=== PATIENT | male | born 1955 | race Caucasian/White ===

== ENCOUNTER 2018-02-13 10:01 | Inpatient (IN) ==
[2018-02-22] MEDS ORDERED: LIDOCAINE 1% (10mg/ml) 2mL INJ PF SDV ID ONE (06:00)
[2018-02-22] MEDS ORDERED: METOCLOPRAMIDE 10mg/2ml INJECTION IVP ONE (06:00)
[2018-02-22] MEDS ORDERED: TRANEXAMIC ACID 1,000 MG in NS 100 ML IV ONE ×2 (06:00→07:00)
[2018-02-22] MEDS ORDERED: ACETAMINOPHEN 500 MG TABLET PO ONE (06:00)
[2018-02-22] MEDS ORDERED: ONDANSETRON 4 MG/2 ML INJECTION IVP ONE (06:00)
[2018-02-22] MEDS ORDERED: DEXAMETHASONE 4 MG/ML INJECTION IVP ONE (06:00)
[2018-02-22] MEDS ORDERED: FAMOTIDINE PB 20 MG/50 ML BAG IV ONE (06:00)
[2018-02-22] MEDS ORDERED: EPINEPHrine PF 0.25 MG, BUPIVACAINE 0.25% PF 30 ML in NS 30 ML OPSITE ONE (08:00)
[2018-02-22 08:39] VITALS: BMI 25.7
[2018-02-22] MEDS: NS 1,000 ML IV SCH ×7 (09:00→18:11)
[2018-02-22] MEDS: NOZIN NASAL SWAB NAS SCH ×5 (09:45→22:43)
--- NOTE | 2018-02-22 10:59 | Anesthesia Preoperative Report ---
Anesthesia Preoperative Record - Date and Time Date: 02/22/18 Preoperative Diagnosis: RT MCKENNA M16.11 Proposed Procedure: RIGHT ARTHROPLASTY TOTAL HIP ROBOT ASSIST NPO Since Date: 02/22/18 NPO Since Time: 00:00 Allergies/Adverse Reactions: Allergies Allergy/AdvReac Type Severity Reaction Status Date / Time LEON Inhibitors Allergy Unknown SWELLING Verified 02/22/18 08:53 Cashews Allergy Unknown THROAT Verified 02/22/18 08:53 SWELLS Peanuts Allergy Unknown THROAT Verified 02/22/18 08:53 SWELLS tramadol [From Ultram] Allergy Unknown facial Verified 02/22/18 08:53 swelling - Vital Signs Vital Signs: Temperature 98.5 F 02/22/18 08:25 Pulse Rate 57 L 02/22/18 09:08 Respiratory Rate 18 02/22/18 08:25 Blood Pressure 134/83 02/22/18 08:25 Pulse Oximetry 98 02/22/18 08:25 Height and Weight: Height 1.7 m Weight 74.5 kg Body Mass Index 25.7 - Medications Inpatient Medications: Current Medications Cefazolin Sodium (Kefzol 1 Gm Vial) 2 g IVP PREOP ONE Stop: 02/22/18 11:01 Sodium Chloride (Normal Saline) 1,000 mls @ 50 mls/hr IV .Q20H HAMLET Isopropyl Alcohol (Nozin Nasal Swab) 1 each CRIS Q1M HAMLET Stop: 02/22/18 12:33 Sodium Chloride (Iv Flush) 10 - 80 ml IV PRN PRN PRN Reason: [place] Home Medications: Home Medications Medication Instructions Recorded Confirmed Type Toprol XL (metoprolol succinate 50 mg PO DAILY #90 tab 05/19/17 02/22/18 Rx ER) 50 mg tablet, 24 hr Proscar (finasteride) 5 mg tablet 5 mg PO DAILY #30 tab 10/20/17 02/22/18 Rx Norvasc (amlodipine) 5 mg tablet 5 mg PO BID #60 tab 12/08/17 02/22/18 Rx Hydrocodone/APAP 7.5/325 [[place] 1 tab PO Q4-6HPRN PRN 01/22/18 02/22/18 History 7.5/325] Lisinopril [Prinivil] 10 mg PO DAILY 01/22/18 02/22/18 History Cholecalciferol (Vitamin D3) 1 cap PO NOTE 02/22/18 02/22/18 History [Vitamin D3] Is Patient on Beta Praveen?: Yes Beta Praveen Last Dose Date/Time: TOPROL XL 50 MG 02/21/18 0800 - Medical History Respiratory: DENIES: Sleep Apnea Cardiovascular: Reports: Hypertension Renal/Endocrine: Reports: Other (BPH) Other History: Reports: Cancer (renal CA, excision only ( R KIDNEY REMOVED DECEMBER 2017).) - Surgical History HEENT Surgeries: Reports: Nose Surgery (sinus surgery) Endocrine Surgery/Treatments: Reports: Other (Right robotic radical nehrectomy ) GI Surgery/Treatments: Reports: Hernia Repair (Rt inguinal hernia repair), Colonoscopy Musculoskeletal Surgery/Tx: Reports: Knee Arthroscopy (left knee 1995), Shoulder Arthroscopy (left RCR 2003), Total Knee Replacement (Lt TKA 2015) Reproductive Surgery/Treatment: Reports: Vasectomy Anesthesia Reactions: None Hx Family Anesthesia Reaction: No History of Motion Sickness: No - Social History Smoking Status: Former smoker (QUIT SMOKING, ONLY CHEWS TOBACCO NOW) Hx Chewing Tobacco Use: Yes Second Hand Exposure: No Substance Use Type: does not use Alcohol Intake Frequency: holidays/special occasions only - Pertinent Findings Laboratory: CBC and BMP 02/22/18 08:53 02/22/18 08:53 BMP 02/22/18 08:53 Sodium 146 H Potassium 5.0 Chloride 108 H Carbon Dioxide 23 BUN 36.0 H Creatinine 1.6 H Glucose 83 Calcium 9.7 Liver Function 02/22/18 Range/Units 08:53 Total Bilirubin 0.80 (0.20-1.30) MG/DL AST 25 (17-59) U/L ALT 30 (1-50) U/L Alkaline Phosphatase 88 (38-126) U/L Albumin 4.7 (3.5-5.0) g/dL - Physical Exam Respiratory Exam: Present: lungs clear, bilateral breath sounds equal Cardiovascular Exam: Present: regular rate and rhythm, no murmur - Airway Assessment Mallampati Score: I TMD: 2 Fingerbreadths Neck Extension: good Overall Assessment: may be difficult mask vent (facial hair otherwise no other concerns) - ASA ASA Score: 3 - Plan Anesthesia: General Inhalation Gases, Neuroaxial Regional/Trunk Block: Spinal - Discussion Discussion: Discussed risks/options/alternatives of anesthesia and questions answered. Patient consents. Nursing pain assessment noted. Present for Discussion: family member Attestation Statement: Prior to the delivery of any anesthetic medication, I examined the patient, developed the plan, obtained the patient's consent and discussed the risk and benefits of the procedure with the patient/guardian. - Additional Information Seen by Anesthesia: Yes
[2018-02-22] MEDS ORDERED: CEFAZOLIN 1 G INJECTION IVP ONE (11:00)
[2018-02-22] MEDS ORDERED: VANCOMYCIN 1,000 MG INJECTION ONE (11:01)
[2018-02-22] MEDS ORDERED: FentaNYL 250 MCG/5 ML INJECTION ONE (11:09)
[2018-02-22] MEDS ORDERED: PROPOFOL 20 ML ONE (11:09)
[2018-02-22] MEDS ORDERED: MIDAZOLAM 2mg/2ml INJECTION ONE ×2 (11:09→12:54)
[2018-02-22] MEDS ORDERED: KETAMINE 500 MG/10 ML INJECTION ONE (11:09)
[2018-02-22] MEDS ORDERED: LIDOCAINE 2% (100mg/5mL) 5ml PF SDV ONE (11:11)
[2018-02-22] MEDS ORDERED: BUPIVACAINE 0.75%/DEXTROSE 8.5% SPINAL 2 ML AMPULE IJ ONE (11:11)
[2018-02-22] MEDS ORDERED: VANCOMYCIN 1,000 MG INJECTION IAR ONE (11:44)
[2018-02-22] MEDS ORDERED: SALINE FLUSH 10ml SYRINGE IV PRN (12:16)
[2018-02-22] MEDS ORDERED: FentaNYL 100 MCG/2 ML INJECTION IVP PRN (13:10)
--- NOTE | 2018-02-22 13:54 | Anesthesia Postoperative Note ---
- Date and Time Date: 02/22/18 Time: 13:53 - Status Patient Participated in Evaluation: Patient Participated in Person Vital Signs: Temperature 98.5 F 02/22/18 08:25 Pulse Rate 57 L 02/22/18 09:08 Respiratory Rate 18 02/22/18 08:25 Blood Pressure 134/83 02/22/18 08:25 Pulse Oximetry 98 02/22/18 08:25 Respiratory Function: Airway Patent, Regular Respirations Cardiovascular Function: Regular Pulse EKG: Sinus Rhythm Mental Status: Alert and Oriented Pain Intensity: 0 Hydration: IV Infusing Complications During Recover: None Apparent - Follow-Up Instructions Instructions: Per Surgeon
[2018-02-22] MEDS ORDERED: DiphenhydrAMINE 25 MG CAPSULE PO PRN (14:07)
[2018-02-22] MEDS ORDERED: LORazepam 1 MG TABLET PO PRN (14:07)
[2018-02-22] MEDS ORDERED: NOZIN NASAL SWAB NAS ONE (14:07)
[2018-02-22] MEDS ORDERED: DiphenhydrAMINE 50 MG/ML INJECTION IVP PRN (14:07)
[2018-02-22] MEDS ORDERED: ONDANSETRON 4 MG/2 ML INJECTION IVP PRN (14:07)
--- NOTE | 2018-02-22 14:08 | XRay Report ---
Indication: postoperative image PROCEDURE: XR pelvis w/ 1 view RT hip: Encounter: Initial Comparison: December 05, 2017 Findings: Postoperative changes of right total hip replacement are seen. There is expected postoperative subcutaneous gas. No evidence of hardware failure or acute fracture. No retained radiopaque surgical instruments or sponges seen. Impression: New right total hip prosthesis without evidence of immediate complication. .
[2018-02-22] MEDS: Oxycodone *IR* 5 MG TABLET PO PRN ×3 (16:16→22:36)
[2018-02-22] MEDS: ACETAMINOPHEN 325 MG TABLET PO SCH ×2 (16:16→20:07)
[2018-02-22] MEDS: CEFAZOLIN 2 G in NS 100 ML IV SCH (18:13)
[2018-02-22] MEDS: DOCUSATE SODIUM 100 MG CAPSULE PO SCH (20:08)
[2018-02-22] MEDS: AMLODIPINE 5 MG TABLET PO SCH (20:08)
[2018-02-22] MEDS ORDERED: SENNOSIDES 8.6 MG TABLET PO SCH (21:00)
[2018-02-22] MEDS ORDERED: ASPIRIN *EC* 81 MG TABLET PO SCH (21:00)
[2018-02-23] MEDS: CEFAZOLIN 2 G in NS 100 ML IV SCH (03:15)
[2018-02-23 03:42] VITALS: RESP 16
[2018-02-23] MEDS: Oxycodone *IR* 5 MG TABLET PO PRN ×3 (05:44→11:59)
[2018-02-23] MEDS: NOZIN NASAL SWAB NAS SCH ×3 (05:45→13:03)
[2018-02-23] MEDS: NS 1,000 ML IV SCH (05:54)
[2018-02-23 07:13] VITALS: O2SAT 98
--- NOTE | 2018-02-23 07:39 | Orthopedic Progress Note ---
Date: Date: 02/23/18 Time: 735 Subjective/Severity of Illness: Mr. Becerril is sitting up in the chair this morning on rounds. His pain has been well controlled with Roxicodone. Has been up ambulating with walker multiple times. Denies any CP, SOA, nausea. Hgb 10.5 Field Staff Manager 1.5 (baseline 1.7) Orthopedic Exam Vital signs: Temperature 98.7 F 02/23/18 07:13 Pulse Rate 63 02/23/18 07:13 Respiratory Rate 16 02/23/18 07:13 Blood Pressure 113/63 02/23/18 07:13 Pulse Oximetry 98 02/23/18 07:13 - Constitutional General Appearance: Present: alert, orientated x3, cooperative, well developed, well nourished - Respiratory Exam Present: non-labored - Cardiovascular Exam Present: pedal pulses intact - Extremities Exam Present: pulses intact. Absent: calf tenderness - Dressing Dressing: dry, intact, no drainage Comments: Mepliex right hip - Integumentary Exam Present: pink, warm, dry - Neurological Exam Present: intact to light touch, no deficits - Psychiatric Exam Present: alert, oriented, normal affect, attentive - Labs Result Diagrams: 02/23/18 03:56 02/23/18 03:56 Abnormal lab results 02/22/18 02/22/18 02/22/18 Range/Units 08:53 08:53 18:03 Hgb 13.3 L (13.5-17.5) GM/DL Hct 39.8 L (41-53) % RDW Std Deviation 51.8 H (36.9-50.2) [place] % (Auto) 9.5 H (0-9.0) % Sodium 146 H (134-144) MEQ/L Chloride 108 H (98-107) MEQ/L Carbon Dioxide (22-30) MEQ/L BUN 36.0 H (9-20) MG/DL Creatinine 1.6 H (0.8-1.5) mg/dL Calculated Osmolality 288 H (261-280) MOSM/KG Calcium (8.4-10.2) MG/DL Specimen Hemolysis 50 H (0-25) 02/23/18 02/23/18 Range/Units 03:56 03:56 Hgb 10.5 L D (13.5-17.5) GM/DL Hct 32.7 L D (41-53) % RDW Std Deviation (36.9-50.2) [place] % (Auto) (0-9.0) % Sodium (134-144) MEQ/L Chloride 108 H (98-107) MEQ/L Carbon Dioxide 20 L (22-30) MEQ/L BUN 28.0 H (9-20) MG/DL Creatinine (0.8-1.5) mg/dL Calculated Osmolality (261-280) MOSM/KG Calcium 8.2 L D (8.4-10.2) MG/DL Specimen Hemolysis (0-25) H & H 02/22/18 02/22/18 02/23/18 Range/Units 08:53 18:03 03:56 Hgb 14.3 13.3 L 10.5 L D (13.5-17.5) GM/DL Hct 42.7 39.8 L 32.7 L D (41-53) % Orthopedic Assessment and Plan (1) Primary osteoarthritis of right hip Status: Acute Assessment and Plan: Current anti-coagulation protocol, switched from ASA to Lovenox bridge to Coumadin due to CKD stage 3 and Right nephrectomy for VTE prophylaxis. SCD's for added protection PT/OT services to improve independent function. Discharge Planning per Case Management. - Anticoagulation Therapy Anticoagulation: Coumadin therapy with Lovenox bridge x30 days - Additional Diagnoses Hypertension: stable, resume medications Anemia: no intervention required, patient was asymptomatic, labs monitored CKD: labs monitored and stable, other (Creatinine 1.5 ) Hospital Course Summary Disclaimer: The visit summary below is not to be considered part of the above Progress Note.
[2018-02-23] MEDS ORDERED: WARFARIN - PHARMACY CONSULT MC ONE (07:44)
--- NOTE | 2018-02-23 07:50 | Discharge Summary ---
Orthopedic Discharge Info Date of admission: 02/22/18 07:46 Anticipated date of discharge: 02/23/18 Primary care physician: Gaurav Reilly APRN Attending Physician: Dilshad Jamil MD Consults: 02/22/18 08:24 Consult to Anesthesiology [CONS] Routine Reason For Exam: Preoperative Assessment 02/22/18 14:07 Case Management Consult [CONS] Routine Reason For Exam: Discharge Planning DME-Walker [CONS] Routine Height: 5 ft 7 in Weight: 74.5 kg Total Joint Outpatient Therapy [CONS] Routine Comment: Remove dressing in 2 weeks - Discharge Diagnosis (1) Primary osteoarthritis of right hip Status: Acute - Procedures Procedures: Procedures Replacement of Left Knee Joint with Synthetic Substitute, Cemented, Open Approach (11/19/15) - Laboratory Result Diagrams: 02/23/18 03:56 02/23/18 03:56 Laboratory: Abnormal lab results 02/22/18 02/22/18 02/22/18 Range/Units 08:53 08:53 18:03 Hgb 13.3 L (13.5-17.5) GM/DL Hct 39.8 L (41-53) % RDW Std Deviation 51.8 H (36.9-50.2) [place] % (Auto) 9.5 H (0-9.0) % Sodium 146 H (134-144) MEQ/L Chloride 108 H (98-107) MEQ/L Carbon Dioxide (22-30) MEQ/L BUN 36.0 H (9-20) MG/DL Creatinine 1.6 H (0.8-1.5) mg/dL Calculated Osmolality 288 H (261-280) MOSM/KG Calcium (8.4-10.2) MG/DL Specimen Hemolysis 50 H (0-25) 02/23/18 02/23/18 Range/Units 03:56 03:56 Hgb 10.5 L D (13.5-17.5) GM/DL Hct 32.7 L D (41-53) % RDW Std Deviation (36.9-50.2) [place] % (Auto) (0-9.0) % Sodium (134-144) MEQ/L Chloride 108 H (98-107) MEQ/L Carbon Dioxide 20 L (22-30) MEQ/L BUN 28.0 H (9-20) MG/DL Creatinine (0.8-1.5) mg/dL Calculated Osmolality (261-280) MOSM/KG Calcium 8.2 L D (8.4-10.2) MG/DL Specimen Hemolysis (0-25) H & H 02/22/18 02/22/18 02/23/18 Range/Units 08:53 18:03 03:56 Hgb 14.3 13.3 L 10.5 L D (13.5-17.5) GM/DL Hct 42.7 39.8 L 32.7 L D (41-53) % Orthopedic Discharge HPI - HPI Comments This patient was admitted for elective surgical tx of end stage degenerative joint disease that failed to respond to conservative treatment. Further details of this is found in the admission H&P. Orthopedic Hospital Course Hospital course: 02/23/18 07:48 After appropriate preoperative clearance and signing of operative consent, the patient was given IV antibiotics, according to orthopedic protocol. The patient was taken to the operating room and underwent elective right total hip arthroplasty. Following surgery, antibiotics were discontinued less than 24 hours according to joint protocol. Appropriate anticoagulants were initiated and SCDs added for DVT prevention. The dressing was clean, dry, and intact. Pain control was obtained via multimodal approach. Bowel motivation addressed with scheduled and PRN medications. Early mobilization was initiated through PT services. Discharge arrangements made by a collaborative effort between the patient and Case Management. HTN- home medications restarted and BP well controlled. CKD stage 3 (Right Nephrectomy)- creatinine 1.5 (baseline 1.7). Switched to Lovenox bridge to Coumadin, will avoid ASA/NSAIDs. Anemia- labs monitored (hgb 10.5). no intervention required. Will have patient follow up with PCP in 1 week for medical follow up and INR/ Coumadin management. We will manage INR and Coumadin until seen by PCP, and will fax labs from ortho office. Goal INR 2.0. Coumadin for 6 weeks post-op. Follow-up is scheduled in 2-3 weeks. Discharge instructions given by orthopedic providers and nursing staff at discharge. Discharge condition was good. 02/23/18 07:50 02/23/18 13:50 Care extended to > 2 midnight stays?: No Discharge Plan - Med Rec/Dispo Referrals/Follow Up: Shelly Day, REPAIR SUPERVISOR [Advanced Practice Nurse] - 03/14/18 10:00 am Gaurav Reilly APRN [Primary Care Provider] - 1 Week Additional Instructions: COME TO [facility] EACH DAY BEGINNING FEBRUARY 24 FOR LOVENOX INJECTION. CHECK IN AT ADMISSION AND THEN GO TO ROOM 114 FOR INJECTION. BEGINNING MARCH 01 GO TO [facility] OFFICE FOR PT/INR EVERY MONDAY AND MONDAY FOR 4 WEEKS WHILE YOU ARE TAKING COUMADIN. [facility] ON 02/26/2018 AT 12:50PM FOR PHYSICAL THERAPY EVAL. PHONE [phone] Prescriptions: New Docusate Sodium [Colace] 100 mg PO BID capsule Enoxaparin Sodium [Lovenox] 40 mg SQ Q24H syringe Oxycodone *IR* [Roxicodone *Ir*] 5 - 15 mg PO Q3H PRN #60 tab PRN Reason: Breakthrough Pain PEG 3350 17gm PACKET [Miralax] 17 gm PO DAILY packet Warfarin Sodium [Coumadin] 5 mg PO DAILY #5 tab Acetaminophen [Tylenol] 650 mg PO QID tablet Milk of Magnesia [Mom] 30 ml PO DAILY udc Continue Lisinopril [Prinivil] 10 mg PO DAILY Cholecalciferol (Vitamin D3) [Vitamin D3] 1 cap PO NOTE Toprol XL (metoprolol succinate ER) 50 mg tablet, 24 hr 50 mg PO DAILY #90 tab Proscar (finasteride) 5 mg tablet 5 mg PO DAILY #30 tab Norvasc (amlodipine) 5 mg tablet 5 mg PO BID #60 tab Discontinued Hydrocodone/APAP 7.5/325 [[place] 7.5/325] 1 tab PO Q4-6HPRN PRN PRN Reason: Pain - Disposition 01 Discharged Home, Self-Care - Dismissal Complete Discharge Instructions are:: Complete
--- NOTE | 2018-02-23 08:16 | Pharmacy Consult ---
Pharmacy Consult-Warfarin - Laboratory Information 02/22/18 02/22/18 02/22/18 08:53 08:53 18:03 Hgb 14.3 13.3 L Hct 42.7 39.8 L AST 25 ALT 30 Albumin 4.7 02/23/18 03:56 Hgb 10.5 L D Hct 32.7 L D AST ALT Albumin - Consult Information COUMADIN CONSULT (Initial): Dx: POST ORTHO SURGERY [facility] INR 1.5-2.5 Will give Warfarin 6mg today. Mr Olmstead is on enoxaparin until INR > 1.5 Will continue to monitor. Thank you.
[2018-02-23] MEDS: ACETAMINOPHEN 325 MG TABLET PO SCH ×2 (08:45→11:59)
[2018-02-23] MEDS: FINASTERIDE 5 MG TABLET PO SCH ×2 (08:46→08:49)
[2018-02-23] MEDS: DOCUSATE SODIUM 100 MG CAPSULE PO SCH (08:46)
[2018-02-23] MEDS: AMLODIPINE 5 MG TABLET PO SCH (08:46)
[2018-02-23] MEDS ORDERED: LISINOPRIL 10 MG TABLET PO SCH (09:00)
[2018-02-23] MEDS ORDERED: POLYETHYL GLYCOL 3350 17gm PACKET PO SCH (09:00)
[2018-02-23 11:38] VITALS: BP 133/73; PULSE 70; TEMP 98.5
[2018-02-23] MEDS ORDERED: WARFARIN 6 MG TABLET PO SCH (12:00)
--- NOTE | 2018-02-23 12:59 | Operative Note ---
- Procedure Preoperative Diagnosis: Right hip primary degenerative joint disease Postoperative Diagnosis: Same as preoperative diagnosis. Surgeon: Rudi Jamil MD Statuary Painter: Carlos Enrique Peres Complications: None. Anesthesia: Spinal. Estimated Blood Loss: See Anesthesia Record. Fluids: Please see Anesthesia Record. Description of Procedure: Mr. Becerril and his right hip were identified and marked in the preoperative holding area. He was brought back to the operating suite and spinal anesthetic was administered. He was then placed in a lateral decubitus position with his right hip up. The right lower extremity was prepped and draped in my normal sterile fashion. Timeout was performed. The RPI ([employer]) robotic arm was used to assist with the surgery. A pelvic array was placed into the iliac crest through three small incisions. A direct superior approach was utilized. An approximately 10 cm incision was made in the skin and dissection carried down to the muscle fascia which was then split in line with skin incision. The short external rotators were identified and tagged and detached. A capsulotomy was performed and the hip dislocated. A femoral neck osteotomy was performed at the pre-templated level measuring down from the femoral head. The head was removed and acetabulum exposed. Labrum was removed. The acetabulum was then registered with the robot. The robotic arm was then used to ream with a 57 reamer. The robot then was again used to place a 58 Trident cup in 40 of tilt and 25 of anteversion. One screw was placed into the superior posterior quadrant 30 mm in length and achieved a good bite. A liner was then placed. The proximal femur was exposed and prepared with a cookie cutter followed by reaming and broaching to a size 5. We trialed with a standard head. After thorough irrigation a final Accolade 2 size 5 stem with 132 neck was placed. Leg length and offset were checked with the robot and were good with a +2.5 head. A final ceramic +2.5 mm 36 mm head was placed and the hip reduced. Betadine solution was used to irrigate throughout the case. It was followed by normal saline irrigation. He did have a large venous plexus posteriorly and there was some bleeding towards the end of the case which was cauterized. Joint cocktail was injected throughout soft tissue. The capsulotomy was repaired with Ethibond. Short external rotators were also repaired with Ethibond. 1 g of vancomycin powder was placed into the wound. The muscle fascia was then repaired with #1 Vicryl. I then left my plumber's assistant to close the subcutaneous tissue with 2-0 Vicryl followed by running 4-0 Monocryl skin followed by Dermabond and a sterile dressing. The patient with any placed back into supine position and taken to recovery room in the care of anesthesia.
[2018-02-23] MEDS ORDERED: SENNOSIDES 8.6 MG TABLET PO PRN (13:35)
[2018-02-23] MEDS ORDERED: ENOXAPARIN 40 MG/0.4 ML INJECTION SQ SCH (21:00)
[2018-02-24] MEDS ORDERED: BISACODYL 10 MG SUPPOSITORY RECTALLY SCH (20:00)
== END 2018-02-23 14:17 | disposition home or self-care (01) | DRG 470 ==
LOC: NMC.PERIOP 02-22 07:46 → SRG 02-22 14:13
PROVIDERS: ADMIT Orthopaedic Surgery; ATTEND Orthopaedic Surgery